=== PATIENT | male | born 1990 | race Caucasian/White ===

== ENCOUNTER 2019-03-13 22:21 | Emergency (ER) | payer SELFPAY ==
[~2019-03-13] VITALS: Ht 175.3 cm; Wt 97.0 kg
[2019-03-13 22:56] VITALS: BP 139/94
== END 2019-03-14 03:28 | disposition left against medical advice (07) ==
LOC: ER 22:21
DX: M25.571 Pain in right ankle and joints of right foot (principal); Z53.21 Procedure and treatment not carried out due to patient leaving prior to being seen by health care provider